=== PATIENT | female | born 1970 | race Caucasian/White ===

== ENCOUNTER 2023-09-02 20:27 | Emergency (ER) | payer MEDICARE, SELFPAY ==
[2023-09-02 20:29] VITALS: BP 158/100
[2023-09-02] MEDS: FLEXERIL 10 MG PO (22:32)
[2023-09-02] MEDS: DECADRON 10 MG PO (22:32)
[2023-09-02 22:42] VITALS: BP 135/80
[2023-09-02 22:44] VITALS: BP 135/80
--- NOTE | 2023-09-04 09:53 | ED.MUSCINJ ---
HPI-Injury
General
Chief Complaint: Musculo-Skeletal Complaint
Source: patient
Exam Limitations: none
Time Seen by Provider: 09/02/23 21:15
Nursing documentation reviewed up to this point in time: agreed with
History of Present Illness-Injury
Initial Injury comments:
52 yo female w h/o HTN, presents for 2 months of waxing and waning right side neck pain. She has tried Excedrin, Tylenol Aleve with no relief. Denies radiation of pain, weakness in arm. Denies headache. No recollection of overuse or injury but she
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
She finished a 10 day steroid taper 2 days ago for a rash on her right hand.
Past History
Past History
ED Past Medical History: HTN
ED Past Surgical History: None and Orthopedic (right knee replacement, Angel Luis carpal tunnel, Rght foot surgery)
Social History
Tobacco: Former smoker
Alcohol: None
Personal: Single
Living: with family
Employment: Employed
Review of Systems
Review of Systems
Allergies reviewed?: Yes
All Other Systems: ROS reviewed and negative except as documented in HPI and ROS
EENT: Denies sore throat or mouth swelling (No pain with swallowing)
Respiratory: Denies trouble breathing
Cardiac: Denies chest pain
ABD/GI: Denies abdominal pain or nausea
Musculoskeletal: Reports neck pain; Denies back pain
Skin: Reports no symptoms
Neurological: Denies dizzy, headache, weakness or numbness
Phy Exam
General Physical Exam
General Presentation: well appearing and no apparent distress
General age: appears stated age
General Skin: warm and dry
General Habitus: normal
General Mental: alert
General Hydration: appears well hydrated
ENT Exam
ENT Exam: TM's normal, pharynx normal, neck supple and swallowing well
Cardiovascular Exam
Cardiovascular Exam: regular rate/rhythm
Heart Sounds: normal
Pulmonary Exam
Pulmonary Exam: lungs clear
Neurological Exam
Neurological Exam: alert, normal reflexs (RUE) and no sensory deficits
Musculoskeletal Exam
Musculoskeletal Exam: neck pain (Tender to palpation along right upper trapezius from level C5 to base of skull. Mildly limited ROM to rotation of head. Direct pressure on the area relieves the pain. ) and neuro vasc intact
Skin Exam
Skin Exam: normal color, warm/dry and no rash
Psychiatric Exam
Psychiatric Exam: normal mood/affect
Injury Course
Orders/Labs/Results
Orders:
Orders
09/02/23 21:14
CR Cervical Spine 2 or 3 Vw Urgent
Comment:
Reason For Exam: pain right side neck
09/02/23 22:24
Cervical Collar- Treatment ONCE
Collar Type: Soft Cervical Collar
Cyclobenzaprine HCl [Flexeril] 10 mg PO NOW STA
Dexamethasone [Decadron] 10 mg PO NOW STA
MDM/Problems Addressed
Differential Diagnosis Includes:
neck muscle strain/sprain
MDM/Problems Addressed:
52 yo female w h/o HTN, presents for 2 months of waxing and waning right side neck pain. She has tried Excedrin, Tylenol Aleve with no relief. Denies radiation of pain, weakness in arm. Denies headache. No recollection of overuse or injury but she
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
She finished a 10 day steroid taper 2 days ago for a rash on her right hand.
Clearly muscle strain sprain of right upper trapezius. Suspect with her line of work, washing cars, repetitively aggravating the area.
No bony tenderness, no infectious symptoms, no suspicion of retropharyngeal abscess,
C-spine xray: DJD, nothing acute
Soft collar provided with some relief.
Rx for muscle relaxant sent to her pharmacy
*Critical Care Note
Total Time (30-74mins, 75-104mins- exclusive of procedures): Not Applicable
ED Attending Note
-
Portions of this chart may have been created with voice recognition software.� Occasional wrong word or��sound alike� substitutions may have occurred due to the inherent limitations of voice recognition software.
Discharge Plan
Departure
Patient Disposition: Home (Routine Discharge)
Date of Disposition: 09/02/23
Time of Disposition: 22:24
Patient with high blood pressure during this ER visit?: No
Condition: Good
Discharge Problem:
Neck muscle strain
Instructions: Cervical Muscle Strain, Using Heat for Pain
Prescriptions:
New
cyclobenzaprine 10 mg tablet
10 mg PO BID PRN (Reason: neck pain/spasm) Qty: 20 0RF
No Action
ibuprofen 600 mg tablet
600 mg PO TID PRN (Reason: pain) Qty: 20 0RF
ibuprofen 600 mg tablet
600 mg PO Q6H PRN (Reason: pain) Qty: 20 0RF
cephalexin 500 mg capsule
500 mg PO Q12H 7 Days Qty: 14 0RF
ibuprofen 600 mg tablet
600 mg PO Q8H PRN (Reason: pain) Qty: 10 0RF
cyclobenzaprine 10 mg tablet
10 mg PO HS PRN (Reason: Muscle relaxer) Qty: 7 0RF
Referrals:
Mike Rock MD [Active] - As needed
CODY TATUM MD [Family Provider] -
Activity Restrictions/Additional Instructions:
As we discussed, this is most likely a muscle strain.
Ibuprofen 600 mg, with food, every 6 hours as needed for pain.
Heating pad may help
Use the soft cervical collar for up to 1 week if it helps
Daily gentle range of motion exercises as we discussed
I sent a prescription for a muscle relaxant Flexeril to your pharmacy. This can make you sleepy and slow the reflexes so do not drive or operate any machinery within 8 hours of taking it.
Avoid activities that aggravate your neck pain
Interventions
Interventions:
*Risk Screen - Suicide Last Done: 09/02/23 22:44
*General Assessment Last Done: 09/02/23 20:29
*Neglect/Abuse Screening Last Done: 09/02/23 22:44
*ED COVID-19 Vaccine History Last Done: 09/02/23 20:29
*Nursing Disposition Last Done: 09/02/23 22:44
ED-Musculoskeletal Assessment Last Done: 09/02/23 21:01
Discharge Date and Time
Discharge Date/Time: 09/02/23 22:44
Print Language: CZECH
== END 2023-09-02 22:44 | disposition home or self-care (01) ==
LOC: EMR 20:27
PROVIDERS: EMERGENCY PHYSICIAN Emergency Medicine; FAMILY PHYSICIAN Family Medicine
DX: S16.1XXA Strain of muscle, fascia and tendon at neck level, initial encounter (principal); S29.012A Strain of muscle and tendon of back wall of thorax, initial encounter; X58.XXXA Exposure to other specified factors, initial encounter; I10 Essential (primary) hypertension; M47.812 Spondylosis without myelopathy or radiculopathy, cervical region; Z96.651 Presence of right artificial knee joint; Z86.16 Personal history of COVID-19; Z87.891 Personal history of nicotine dependence; Z88.8 Allergy status to other drugs, medicaments and biological substances
CPT/HCPCS: 99283; 72040